=== PATIENT | male | born 1960 | race Caucasian/White ===

== ENCOUNTER 2019-08-09 12:57 | Emergency (ER) | payer OTHER ==
[~2019-08-09] VITALS: Ht 182.9 cm; Wt 90.7 kg
[~2019-08-09 12:57] MED LIST: ASPIRIN81 MG PO; LISINOPRIL20 MG PO; PLAVIX75 MG PO; SIMVASTATIN40 MG PO
--- NOTE | 2019-08-09 13:37 | Emergency Department Note ---
History of Present Illnes History of Present Illness Chief Complaint: General Medicine Complaints History of Present Illness This is a 59 year old male .post fall from standing hx dementia non verbal PATIENT IN FROM [facility] AFTER FALL FROM STANDING; PER EMS NO LOC. PATIENT WITH SMALL ABRASION ABOVE RIGHT EYEBROW. PATIENT WITH SEVERE DEMENTIA, NONVERBAL. PATIENT USUALLY AMBULATORY - PER EMS HE WALKED OUT TO THE AMBULANCE. 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 Any updates have been documented here. (NATAN SHARPE NP) Past Medical History Recent Fever: No Clinical Suspicion of Infectio: No New/Unexplained Change in Ment: No Past Medical History: Hypertension, CHF, CO, CAD, Anxiety, Depression, Other Mental Illness, Hyperlipedemia Other Medical History: DEMENTIA BPH Past Surgical History: PCI Other Surgery: UNABLE TO DETERMINE - PATIENT NONVERBAL (NATAN SHARPE NP) Social History Smoking Cessation: Unknown if ever smoked Counseling Performed: No Alcohol Use: None Any Illegal Drug Use: No TB Exposure/Symptoms: No Physically hurt or threatened: No (NATAN SHARPE NP) Family History Family history of heart diseas: No (NATAN SHARPE NP) Other Last Tetanus: UNKNOWN Any Pre-Existing Lines (PICC,: No Is patient up to date on immun: Yes Last Flu: 2019 Last Pneumovax: unknown (NATAN SHARPE NP) Review of Systems Review of Systems Constitutional: no symptoms EENTM: no symptoms Cardiovascular: no symptoms Respiratory: no symptoms Gastrointestinal: no symptoms Genitourinary: no symptoms Musculoskeletal: no symptoms Neurological: seizure Psychological: no symptoms, other (hx dementia non verbal ) Endocrine: no symptoms, as per HPI, excessive sweating, flushing, intolerance to cold, intolerance to heat, increased hunger, increased thirst, increased urination, unexplained weight gain, unexplained weight loss, other Hematological/Lymphatic: no symptoms, as per HPI, anemia, blood clots, easy bleeding, easy bruising, swollen glands, other Review of other systems All other systems reviewed and negative. (NATAN SHARPE NP) Physical Exam Related Data Allergies: Coded Allergies: No Known Allergies (Unverified , 07/11/13) Triage Vital Signs Vital Signs Date Time Temp Pulse Resp B/P (MAP) Pulse Ox O2 Delivery O2 Flow Rate FiO2 08/09/19 12:57 98.5 120 18 105/56 98 Vital signs reviewed: Yes (NATAN SHARPE NP) Physical Exam CONSTITUTIONAL Constitutional: well-developed, well-nourished HENT HENT: normocephalic; atraumatic (noted abrasion r eye brow ) HENT L/R: left ext ear normal, right ext ear normal EYES Eyes: PERRL, conjunctivae normal NECK Neck: ROM normal PULMONARY Pulmonary: effort normal, breath sounds normal CARDIOVASCULAR Cardiovascular: tachycardia (120) GASTROINTESTINAL Abdominal: soft, nontender, bowel sounds normal GENITOURINARY Genitourinary: exam deferred SKIN Skin: warm, dry MUSCULOSKELETAL Musculoskeletal: ROM normal NEUROLOGICAL Neurological: alert; oriented x 3 (hx dementia non verbal ) PSYCHOLOGICAL Psychological: mood/affect normal, judgement normal (NATAN SHARPE NP) Results Imaging Impressions Procedure: [id number] CT/CT CERVICAL SPINE WO Exam Date: 08/09/19 Exam Time: 1420 REPORT STATUS: Signed EXAMINATION: Head and cervical spine CT without contrast. HISTORY: Status post fall, alteration of consciousness, pain, evaluate for fracture. COMPARISON: None. TECHNIQUE: Multidetector axial images were obtained without contrast from the foramen magnum to the vertex and through the cervical spine. The images were reconstructed using brain and bone algorithms. Thin section brain images were reformatted into coronal and sagittal planes. Dose modulation, iterative reconstruction, and/or weight based adjustment of the mA/kV was utilized to reduce the radiation dose to as low as reasonably achievable. HEAD CT FINDINGS: Skull/scalp: No lytic or blastic lesions. No fractures. Parenchyma: Few scattered and mildly confluent periventricular white matter hypodensities, most likely nonspecific chronic microvascular ischemic changes. Tiny chronic lacunar infarct adjacent to the right supraorbital frontal horn. Chronic cortical infarct in the right posteromedial occipital lobe (including the cuneus gyrus) No mass, hemorrhage or CT evidence of acute vascular insult. Brain volume: Mild generalized brain volume loss, slightly more lower is suspected for patient's age. Ventricles: No hydrocephalus or displacement. Arteries: Prominent atherosclerotic calcification of the carotid and vertebral arteries. Dural sinuses: No abnormal density. Extra-axial spaces: No abnormal density. Foramen magnum: No mass, Chiari malformation, or basilar invagination. Sella: No obvious mass. Paranasal/mastoid sinuses: Imaged portions unremarkable. CERVICAL SPINE CT FINDINGS: Alignment:Normal alignment and lordosis. Soft tissues: Normal. Vertebrae: Normal height and density. No acute fracture, infection or neoplasm. Degenerative changes: C1-C2 to C4-C5: Within normal limits, no stenoses. C5-C6: Uncovertebral and facet arthrosis results mild foraminal narrowing. C6-C7 and C7-T1: Within normal limits, no stenosis. IMPRESSION: Head CT: 1. No acute postraumatic intracranial hemorrhage. 2. Mild chronic microvascular ischemic changes. 3. Chronic right occipital cortical infarct. 4. Mild generalized brain volume loss, slightly more suspected for patient's age. Cervical spine CT: 1. No acute fractures or dislocations. 2. Mild chronic degenerative changes as described. Note: Acute post traumatic spinal cord, vascular or ligamentous injury cannot adequately be assessed with CT. Signed by: Dr. Janie Kruse M.D. on 08/09/2019 3:22 PM Dictated By: JANIE KRUSE MD 1522 Transcribed By: CARI on 08/09/19 1522 Procedure: [id number] CT/CT BRAIN WO Exam Date: 08/09/19 Exam Time: 1420 REPORT STATUS: Signed EXAMINATION: Head and cervical spine CT without contrast. HISTORY: Status post fall, alteration of consciousness, pain, evaluate for fracture. COMPARISON: None. TECHNIQUE: Multidetector axial images were obtained without contrast from the foramen magnum to the vertex and through the cervical spine. The images were reconstructed using brain and bone algorithms. Thin section brain images were reformatted into coronal and sagittal planes. Dose modulation, iterative reconstruction, and/or weight based adjustment of the mA/kV was utilized to reduce the radiation dose to as low as reasonably achievable. HEAD CT FINDINGS: Skull/scalp: No lytic or blastic lesions. No fractures. Parenchyma: Few scattered and mildly confluent periventricular white matter hypodensities, most likely nonspecific chronic microvascular ischemic changes. Tiny chronic lacunar infarct adjacent to the right supraorbital frontal horn. Chronic cortical infarct in the right posteromedial occipital lobe (including the cuneus gyrus) No mass, hemorrhage or CT evidence of acute vascular insult. Brain volume: Mild generalized brain volume loss, slightly more lower is suspected for patient's age. Ventricles: No hydrocephalus or displacement. Arteries: Prominent atherosclerotic calcification of the carotid and vertebral arteries. Dural sinuses: No abnormal density. Extra-axial spaces: No abnormal density. Foramen magnum: No mass, Chiari malformation, or basilar invagination. Sella: No obvious mass. Paranasal/mastoid sinuses: Imaged portions unremarkable. CERVICAL SPINE CT FINDINGS: Alignment:Normal alignment and lordosis. Soft tissues: Normal. Vertebrae: Normal height and density. No acute fracture, infection or neoplasm. Degenerative changes: C1-C2 to C4-C5: Within normal limits, no stenoses. C5-C6: Uncovertebral and facet arthrosis results mild foraminal narrowing. C6-C7 and C7-T1: Within normal limits, no stenosis. IMPRESSION: Head CT: 1. No acute postraumatic intracranial hemorrhage. 2. Mild chronic microvascular ischemic changes. 3. Chronic right occipital cortical infarct. 4. Mild generalized brain volume loss, slightly more suspected for patient's age. Cervical spine CT: 1. No acute fractures or dislocations. 2. Mild chronic degenerative changes as described. Note: Acute post traumatic spinal cord, vascular or ligamentous injury cannot adequately be assessed with CT. Signed by: Dr. Janie Kruse M.D. on 08/09/2019 3:22 PM Dictated By: JANIE KRUSE MD 1522 Transcribed By: CARI on 08/09/19 1522 (NATAN SHARPE NP) Critical Care Time Subsequent provider I assumed direction of critical care for this patient from another provider of my specialty. (NATAN SHARPE NP) Assessment & Plan Reassessment Reassessment 59y m presented o ed form [facility] per ems post fall from standing pt amb hx dementia non verbal - noted abrasion r eye brown - no loc reported - Dr Erickson in eval pt status - ct brain ct cervical ordered Dr Erickson in eval pt status hr 71 (NATAN SHARPE NP) Assessment & Plan Final Impression: (1) Contusion (2) Head injury (3) Abrasion head Assessment & Plan discussed ct results plan of care w/ Dr Erickson ok to send back to half-way 1. follow up with your doctor in 1-2 days without fail 2. return to ed as needed 3. wound care instructions / keep wound clean and dry (NATAN SHARPE WORK[employer] LEGAL SECRETARY) Depart Disposition: DIS TO LONGTERM BED Last Vital Signs Date Time Temp Pulse Resp B/P (MAP) Pulse Ox O2 Delivery O2 Flow Rate FiO2 08/09/19 12:57 98.5 120 18 105/56 98 (NATAN SHARPE [employer] LEGAL SECRETARY) Home Meds Reported Medications Aspirin (ASPIRIN) 81 Mg Tab.chew, 81 MG PO DAILY 07/12/13 Lisinopril (PRINAVIL / ZESTRIL) 20 Mg Tablet, 20 MG PO DAILY 07/12/13 Clopidogrel Bisulfate* (PLAVIX) 75 Mg Tablet, 75 MG PO DAILY 07/12/13 Simvastatin (SIMVASTATIN) 40 Mg Tablet, 40 MG PO HS 07/12/13 Physician Attestation Provider Attestation 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 (DANIELLE ERICKSON MD) NATAN SHARPE [employer] LEGAL SECRETARY August 09, 2019 13:37 DANIELLE ERICKSON MD August 09, 2019 16:49
[2019-08-09] MEDS ORDERED: SODIUM CHLORIDE 0.9% 1000ML 1,000 ML IV STA (14:09)
--- NOTE | 2019-08-09 15:01 | NUR ---
Pt remains confused, at baseline dementia. Non-verbal, pt attempting to climb off stretcher. Easily redirected by voice. Pt figiditing with costello and hair on head. Vital signs stable. Awaiting further orders/disposition.
--- NOTE | 2019-08-09 15:25 | Diagnostic Imaging Report ---
EXAMINATION: Head and cervical spine CT without contrast. HISTORY: Status post fall, alteration of consciousness, pain, evaluate for fracture. COMPARISON: None. TECHNIQUE: Multidetector axial images were obtained without contrast from the foramen magnum to the vertex and through the cervical spine. The images were reconstructed using brain and bone algorithms. Thin section brain images were reformatted into coronal and sagittal planes. Dose modulation, iterative reconstruction, and/or weight based adjustment of the mA/kV was utilized to reduce the radiation dose to as low as reasonably achievable. HEAD CT FINDINGS: Skull/scalp: No lytic or blastic lesions. No fractures. Parenchyma: Few scattered and mildly confluent periventricular white matter hypodensities, most likely nonspecific chronic microvascular ischemic changes. Tiny chronic lacunar infarct adjacent to the right supraorbital frontal horn. Chronic cortical infarct in the right posteromedial occipital lobe (including the cuneus gyrus) No mass, hemorrhage or CT evidence of acute vascular insult. Brain volume: Mild generalized brain volume loss, slightly more lower is suspected for patient's age. Ventricles: No hydrocephalus or displacement. Arteries: Prominent atherosclerotic calcification of the carotid and vertebral arteries. Dural sinuses: No abnormal density. Extra-axial spaces: No abnormal density. Foramen magnum: No mass, Chiari malformation, or basilar invagination. Sella: No obvious mass. Paranasal/mastoid sinuses: Imaged portions unremarkable. CERVICAL SPINE CT FINDINGS: Alignment:Normal alignment and lordosis. Soft tissues: Normal. Vertebrae: Normal height and density. No acute fracture, infection or neoplasm. Degenerative changes: C1-C2 to C4-C5: Within normal limits, no stenoses. C5-C6: Uncovertebral and facet arthrosis results mild foraminal narrowing. C6-C7 and C7-T1: Within normal limits, no stenosis. IMPRESSION: Head CT: 1. No acute postraumatic intracranial hemorrhage. 2. Mild chronic microvascular ischemic changes. 3. Chronic right occipital cortical infarct. 4. Mild generalized brain volume loss, slightly more suspected for patient's age. Cervical spine CT: 1. No acute fractures or dislocations. 2. Mild chronic degenerative changes as described. Note: Acute post traumatic spinal cord, vascular or ligamentous injury cannot adequately be assessed with CT. Signed by: Dr. Malka Kruse M.D. on 08/09/2019 3:22 PM
[2019-08-09 16:34] VITALS: BP 162/66
== END 2019-08-09 17:43 | disposition home or self-care (01) ==
LOC: ER 12:57
DX: S00.83XA Contusion of other part of head, initial encounter (principal); S00.211A Abrasion of right eyelid and periocular area, initial encounter; W18.30XA Fall on same level, unspecified, initial encounter; Y92.008 Other place in unspecified non-institutional (private) residence as the place of occurrence of the external cause; F03.90 Unspecified dementia, unspecified severity, without behavioral disturbance, psychotic disturbance, mood disturbance, and anxiety; I10 Essential (primary) hypertension; E78.5 Hyperlipidemia, unspecified; I25.10 Atherosclerotic heart disease of native coronary artery without angina pectoris; F41.9 Anxiety disorder, unspecified; I25.2 Old myocardial infarction
CPT/HCPCS: 70450; 72125; 99284